=== PATIENT | female | born 1975 | race Hispanic/Latino ===

== ENCOUNTER 2018-09-18 14:46 | Emergency (ER) | payer BC ==
[~2018-09-18] VITALS: Ht 160 cm; Wt 77.1 kg
--- OUTSIDE RECORDS SUMMARY | 2018-09-18 14:48 | XMS REPORT ---
Author Author [facility] Address Unknown Phone Unavailable Care Team Providers Care Supervisor Cytogenetic Laboratory Name Role Phone DR Ginna ARSHAD Unavailable Unavailable DR CAROL ARSHAD Unavailable Unavailable Problems This patient has no known problems. Allergies, Adverse Reactions, Alerts This patient has no known allergies or adverse reactions. Medications This patient has no known medications. Encounters Start Date/Time End Date/Time Encounter Type Admission Type Attending Clinicians Care Facility Care Department Encounter ID 2017-02-27 10:36:00 2017-02-27 11:50:00 Emergency E CAROL ARSHAD [facility] [id number] Results Test Description Test Time Test Comments Text Results Atomic Results Result Comments OVA AND PARASITE EXAM 2018-02-07 07:31:00 Direct Exam (test code=DE1) NO OVA ,CYSTS, OR PARASITES SEEN Direct Exam (test code=DE17) TESTING PERFORMED BY: [facility] Direct Exam (test code=DE18) [id number] STOOL CULTURE (GI)2018-02-04 08:31:00* Test Item Value Reference Range Comments Culture Observations (test code=COB1) NO SALMONELLA, SHIGELLA, STAPH AUREUS OR CAMPYLOBACTER ISOLATED. SCREENING Culture Observations (test code=COB17) NEGATIVE FOR E. COLI 0157:H7 FECAL [id number] 17:02:00* Test Item Value Reference Range Comments Direct Exam (test code=DE1) FEW WHITE BLOOD CELLS SEEN CT ABDOMEN AND PELVIS W/O [id number] 16:27:49CT abdomen and pelvis without contrastLocation Code: [id number] HISTORY: RIGHT sided abd pain with diarrheaCOMPARISON: NoneTechnique: Helical CT of the abdomen and pelvis was performed without contrast.Thin section axial, sagittal and coronal images were obtained. Automaticexposure control was utilized. Total DLP: 693 mGycmFINDINGS:The lung bases are clear. 2 cm low-density left adrenal nodules co mpatible with an adenoma. Theunenhanced liver, gallbladder, adrenal glands, kidn eys, pancreas, and spleenare unremarkable.The unopacified loops of bowel demonst rate no focal thickening or dilatation.The appendix is visualized and is normal. There is no free peritoneal air orfluid. The abdominal aorta is normal in arianne fritz and contour. There is noretroperitoneal mass or fluid collection. The urina ry bladder is unremarkable.There is no pelvic mass or fluid collection. The bon es, skin, and surrounding soft tissues are unremarkable.IMPRESSION:1. No acute i ntra-abdominal or pelvic abnormality. 2. 2-cm left adrenal adenoma.AMYLASE AND [id number] 16:00:00* Test Item Value Reference Range Comments AMYLASE (test code=10A) 47 U/L 28-100 LIPASE (test code=60A) 106 IU/L 73-393 COMPREHENSIVE METABOLIC [id number] 16:00:00* Test Item Value Reference Range Comments GLUCOSE (test code=06D) 125 mg/dL 75-100 SODIUM (test code=01A) 139 mmol/L 136-145 POTASSIUM (test code=01B) 3.8 mmol/L 3.6-5.1 CHLORIDE (test code=04A) 107 mmol/L 98-107 CO2 (test code=02A) 24 mmol/L 22-32 ANION GAP (test code=ANG) 11.8 mmol/L BUN (test code=05D) 10 mg/dL 7-18 CREATININE (test code=03E) 0.5 mg/dL 0.4-1.1 BUN/CREA (test code=BCR) 19 12-20 CALCIUM (test code=09D) 8.4 mg/dL 8.3-9.5 BILI TOTAL (test code=11A) 0.2 mg/dL 0.2-1.0 PROTEIN (test code=07D) 7.5 g/dL 6.4-8.2 ALBUMIN (test code=08D) 3.6 g/dL 3.5-4.8 GLOBULIN (test code=GLB) 3.9 g/dL 1.5-3.8 ALB/GLOB (test code=AGRR) 0.9 1.0-2.6 ALK PHOS (test code=35A) 104 IU/L 42-121 AST (test code=30A) 18 IU/L <=42 ALT (test code=31A) 23 IU/L <=78 SERUM [id number] 15:52:00* Test Item Value Reference Range Comments PREG SRM (test code=PGS) NEGATIVE NEGATIVE URINALYSIS WITH [id number] 15:47:00* Test Item Value Reference Range Comments COLOR (test code=COLU) YELLOW YELLOW CLARITY (test code=CLA) CLOUDY CLEAR GLUCOSE UR (test code=UA GLUCOSE) NEGATIVE NEGATIVE BILI UR (test code=BILE) NEGATIVE NEGATIVE KETONES UR (test code=HEIDI) NEGATIVE NEGATIVE SP GRAVITY (test code=SPGR) 1.013 1.005-1.030 PH UR (test code=PH) 6.0 4.5-8.0 PROTEIN UR (test code=PU) NEGATIVE NEGATIVE UROBIL UR (test code=UROQ) 0.2 EU/dL 0.2-1.0 NITRITE UR (test code=NITRITE) NEGATIVE NEGATIVE BLOOD UR (test code=UA BLOOD) 1+ NEGATIVE LEUK ES UR (test code=LEUK) TRACE NEGATIVE WBC UR (test code=UWBC) 4 /HPF 0-5 RBC UR (test code=URBC) 6 /HPF 0-2 EPITH UR (test code=UEPC) MANY /LPF FEW BACTERIA UR (test code=UBACT) FEW /HPF NONE CAST UR (test code=CAST) /LPF NONE CRYSTAL UR (test code=CRYU) / LPF NONE MUCUS UR (test code=MUC) / HPF NONE AMORPH UR (test code=WILLARD) / HPF NONE TRICH UR (test code=UTRICH) /HPF NONE YEAST UR (test code=UY) /HPF NONE SPERM UR (test code=USPERM) /HPF NONE PRO TIME AND [id number] 15:46:00* Test Item Value Reference Range Comments PT (test code=TT) 11.6 s 9.8-13.6 INR (test code=INR) 1.0 INRH (test code=INRH) SUGGESTED THERAPEUTIC RANGE FOR INR: 2.5 - 3.5 For Patients with Prosthetic Valves or Patients with recurrent Thromboembolic Events 2.0 - 3.0 For Most Other Applications PTT (test code=PTT) 32.0 s 20.2-38.0 PTTH (test code=PTTH) To monitor the effectiveness of heparin, we offer the Anti-Xa (Heparin Assay). It can be used for either unfractionated or LMW Heparin. Order Code is ANTI-XA CBC (INCLUDES AUTOMATED DIFFERENTIAL)2018-01-30 15:40:00* Test Item Value Reference Range Comments WBC (test code=WBC) 9.4 10\S\3/uL 4.5-11.0 RBC (test code=RBC) 4.32 10\S\6/uL 4.30-5.70 HGB (test code=HBG) 13.5 g/dL 12.0-15.5 HCT (test code=HCT) 40.1 % 35.0-44.0 MCV (test code=MCV) 92.8 fL 81.0-99.0 MCH (test code=MCH) 31.3 pg 27.0-31.0 MCHC (test code=MCHC) 33.7 g/dL 32.0-36.0 RDW (test code=RDW) 13.7 % 11.5-14.5 PLT (test code=PLT) 412 10\S\3/uL 130-400 MPV (test code=MPV) 9.8 fL 9.4-12.4 NEUTROP # (test code=NE#) 5.9 10\S\3/uL 1.6-8.0 LYMPH # (test code=LY#) 2.7 10\S\3/uL 1.1-3.5 MONOCYTE # (test code=MO#) 0.6 10\S\3/uL 0.0-1.1 EOSINOPH # (test code=EO#) 0.2 10\S\3/uL 0.0-0.7 BASOPHIL # (test code=BA#) 0.0 10\S\3/uL 0.0-0.3 IG # (test code=IG#) 0.03 10\S\3/uL 0.00-0.06 NRBC # (test code=NRBC#) 0.00 10\S\3/uL 0.00-0.01 NEUTROPH % (test code=NE%) 62.3 % 35.0-73.0 LYMPH % (test code=LY%) 29.0 % 20.0-55.0 MONO % (test code=MO%) 6.5 % 2.5-10.0 EOSINOPH % (test code=EO%) 1.7 % 0.0-5.0 BASOPHIL % (test code=BA%) 0.2 % 0.0-2.0 IG % (test code=IG%) 0.3 % 0.0-0.8 NRBC% (test code=NRBC%) 0.0 % 0.0-0.2 MANDIFF (test code=MDIFF) NO NO COMPREHENSIVE METABOLIC [id number] 11:24:00* Test Item Value Reference Range Comments GLUCOSE (test code=06D) 97 mg/dL 75-100 SODIUM (test code=01A) 139 mmol/L 136-145 POTASSIUM (test code=01B) 3.7 mmol/L 3.6-5.1 CHLORIDE (test code=04A) 107 mmol/L 98-107 CO2 (test code=02A) 25 mmol/L 22-32 ANION GAP (test code=ANG) 10.7 mmol/L BUN (test code=05D) 14 mg/dL 7-18 CREATININE (test code=03E) 0.4 mg/dL 0.4-1.1 BUN/CREA (test code=BCR) 36 12-20 CALCIUM (test code=09D) 8.1 mg/dL 8.3-9.5 BILI TOTAL (test code=11A) 0.3 mg/dL 0.2-1.0 PROTEIN (test code=07D) 6.9 g/dL 6.4-8.2 ALBUMIN (test code=08D) 3.6 g/dL 3.5-4.8 GLOBULIN (test code=GLB) 3.3 g/dL 1.5-3.8 ALB/GLOB (test code=AGRR) 1.1 1.0-2.6 ALK PHOS (test code=35A) 89 IU/L 42-121 AST (test code=30A) 12 IU/L <=42 ALT (test code=31A) 22 IU/L <=78 CARDIAC [id number] 11:21:00* Test Item Value Reference Range Comments TROPONIN I (test code=A84) <0.015 ng/mL 0.000-0.045 CKMB (test code=A49) <1.0 ng/mL <=3.6 CPK (test code=32A) 33 IU/L 26-192 CT HEAD W/O [id number] 11:12:21CT brain without contrast.Location code: [id number] HISTORY: dizzy COMPARISON: None.TECHNIQUE: Routine unenhanced axial imaging of the brain was performed. Oneor more of the following dose reduction techniques were used: Automatedexposure control, adjustment of the mA and or KV according to patient size,and/or utilization of iterative reconstruction technique. DLP: 598 mGy-cm. FINDINGS: There is no acute intracranial hemorrhage or extra-axial collection.There is no hydrocephalus, midline shift, or space occupying mass. Young-whitematter differentiation is well preserved with no definite CT evidence of anacute infarct. The cranial vault and skull base are intact. The paranasal sinuses and mastoidair cells are pneumatized and well aerated. IMPRESSION: No acute intracranial abnormality. CBC (INCLUDES AUTOMATED DIFFERENTIAL)2017-02-27 11:04:00* Test Item Value Reference Range Comments WBC (test code=WBC) 9.2 10\S\3/uL 4.5-11.0 RBC (test code=RBC) 4.08 10\S\6/uL 4.30-5.70 HGB (test code=HBG) 12.6 g/dL 12.0-15.5 HCT (test code=HCT) 37.9 % 35.0-44.0 MCV (test code=MCV) 92.9 fL 81.0-99.0 MCH (test code=MCH) 30.9 pg 27.0-31.0 MCHC (test code=MCHC) 33.2 g/dL 32.0-36.0 RDW (test code=RDW) 13.9 % 11.5-14.5 PLT (test code=PLT) 283 10\S\3/uL 130-400 MPV (test code=MPV) 9.9 fL 9.4-12.4 NEUTROP # (test code=NE#) 6.0 10\S\3/uL 1.6-8.0 LYMPH # (test code=LY#) 2.5 10\S\3/uL 1.1-3.5 MONOCYTE # (test code=MO#) 0.5 10\S\3/uL 0.0-1.1 EOSINOPH # (test code=EO#) 0.1 10\S\3/uL 0.0-0.7 BASOPHIL # (test code=BA#) 0.0 10\S\3/uL 0.0-0.3 IG # (test code=IG#) 0.04 10\S\3/uL 0.00-0.06 NRBC # (test code=NRBC#) 0.00 10\S\3/uL 0.00-0.01 NEUTROPH % (test code=NE%) 65.3 % 35.0-73.0 LYMPH % (test code=LY%) 27.0 % 20.0-55.0 MONO % (test code=MO%) 5.9 % 2.5-10.0 EOSINOPH % (test code=EO%) 1.1 % 0.0-5.0 BASOPHIL % (test code=BA%) 0.3 % 0.0-2.0 IG % (test code=IG%) 0.4 % 0.0-0.8 NRBC% (test code=NRBC%) 0.0 % 0.0-0.2 MANDIFF (test code=MDIFF) NO NO RBC MORPH (test code=RBCMOR) NORMAL
[2018-09-18 15:33] LABS: BASOPHILS % 0.1 % (0.0-1.0); EOSINOPHILS # (AUTO) 0.2 (0.0-0.4); EOSINOPHILS % 1.8 % (0.0-6.0); HEMATOCRIT 41.9 % (34.2-44.1); HEMOGLOBIN 14.3 g/dL (12.0-16.0); LYMPHOCYTES # (AUTO) 3.1 (1.0-3.2); LYMPHOCYTES % 31.8 % (18.0-39.1); MEAN CORPUSCULAR HEMOGLOBIN 32.1 pg (28-32); MEAN CORPUSCULAR HGB CONC 34.1 g/dL (31-35); MEAN CORPUSCULAR VOLUME 94.2 fL (81-99); MONOCYTES # (AUTO) 0.6 (0.2-0.8); MONOCYTES % 5.9 % (4.4-11.3); NEUTROPHILS # (AUTO) 5.8 (2.1-6.9); NEUTROPHILS % 60.2 % (38.7-80.0); PLATELET COUNT 312 x10e3/uL (140-360); RED BLOOD COUNT 4.45 x10e6/uL (3.6-5.1); RED CELL DISTRIBUTION WIDTH 13.4 % (11.7-14.4)
[2018-09-18 15:41] LABS: CLARITY,URINE SL CLOUDY (CLEAR); COLOR,URINE YELLOW (YELLOW); KETONES,URINE NEGATIVE (NEGATIVE); LEUKOCYTE ESTERASE ,URINE NEGATIVE (NEGATIVE); NITRITE,URINE NEGATIVE (NEGATIVE); PROTEIN,URINE DIPSTICK NEGATIVE (NEGATIVE)
[2018-09-18 15:42] LABS: BILIRUBIN,URINE NEGATIVE (NEGATIVE); URINE UROBILINOGEN 0.2 mg/dL (0.2 - 1)
--- NOTE | 2018-09-18 15:46 | Diagnostic Imaging Report ---
EXAMINATION: Head CT HISTORY: Dizziness, headaches, vertigo COMPARISON: None. TECHNIQUE: Multidetector axial images were obtained with, without contrast from the foramen magnum to the vertex . The images were reconstructed using brain and bone algorithms. Thin section brain images were reformatted into coronal and sagittal planes. Image quality: Motion/streaking artifact limits the evaluation of the skull base and posterior cranial fossa. Dose modulation, iterative reconstruction, and/or weight based adjustment of the mA/kV was utilized to reduce the radiation dose to as low as reasonably achievable. FINDINGS: Parenchyma: 1. A few juxta cortical and periventricular matter hypodensities mainly in the frontal lobes, most likely nonspecific chronic microvessel ischemic changes versus migraine related. 2. No mass or hemorrhage. No CT evidence of acute territorial vascular insult. Extra-axial spaces:No abnormal density. No extra-axial fluid collections Brain volume: Normal for age. Ventricles: No hydrocephalus or displacement. Arteries: No density suggestive of thrombus. Dural sinuses: No abnormal density. Extra-axial spaces: No abnormal density. Foramen magnum: No mass, Chiari malformation, or basilar invagination. Sella: No obvious mass. Paranasal/mastoid sinuses: Imaged portions unremarkable. Skull/Scalp: No lytic or blastic lesions. No fractures. IMPRESSION: 1. No acute intracranial abnormalities. 2. Mild chronic microvascular ischemic changes. Signed by: Dr. Liane Garibay M.D. on 09/18/2018 3:43 PM
[2018-09-18 15:47] LABS: INR 0.93
[2018-09-18 15:48] LABS: PARTIAL THROMBOPLASTIN TIME 35.4 seconds (23.8-35.5)
[2018-09-18 15:49] LABS: BACTERIA,URINE MANY /HPF; EPITHELIAL CELLS,URINE MANY /LPF
[2018-09-18 16:01] LABS: ALANINE AMINOTRANSFERASE 18 IU/L (0-55); ALBUMIN 3.9 g/dL (3.5-5.0); ALBUMIN/GLOBULIN RATIO 1.1 (0.8-2.0); ALKALINE PHOSPHATASE 84 IU/L (40-150); ANION GAP 12.4 mmol/L (8-16); BLOOD UREA NITROGEN 12 mg/dL (7-26); BUN/CREATININE RATIO 20 (6-25); CALCIUM 9.6 mg/dL (8.4-10.2); CARBON DIOXIDE 23 mmol/L (22-29); CHLORIDE 108 mmol/L (98-107); CREATINE KINASE 32 IU/L (29-168); CREATININE, SERUM 0.61 mg/dL (0.57-1.11); EST GLOMERULAR FILTRATION RATE > 60 ML/MIN (60-); GLUCOSE 88 mg/dL (74-118); MAGNESIUM 2.5 MG/DL (1.3-2.1); POTASSIUM 4.4 mmol/L (3.5-5.1); SODIUM 139 mmol/L (136-145)
[2018-09-18 16:20] LABS: THYROID STIMULATING HORMONE 1.021 uIU/mL (0.350-4.940)
--- NOTE | 2018-09-18 16:23 | Diagnostic Imaging Report ---
EXAMINATION: CHEST 2 VIEWS INDICATION: Dizziness. COMPARISON: None FINDINGS: TUBES and LINES: None. LUNGS: Lungs are well inflated. There is no evidence of pneumonia or pulmonary edema. PLEURA: No pleural effusion or pneumothorax. HEART AND MEDIASTINUM: The cardiomediastinal silhouette is unremarkable. BONES AND SOFT TISSUES: No acute osseous abnormality. UPPER ABDOMEN: No free air under the diaphragm. IMPRESSION: No acute radiographic abnormality. Signed by: Dr. Renetta Baugh MD on 09/18/2018 4:20 PM
[2018-09-18 17:42] VITALS: BP 120/64
== END 2018-09-18 17:43 | disposition home or self-care (01) ==
LOC: ER 14:46
DX: R42 Dizziness and giddiness (principal); I10 Essential (primary) hypertension; F41.9 Anxiety disorder, unspecified; F32.9 Major depressive disorder, single episode, unspecified
CPT/HCPCS: 36415; 70450; 71046; 80053; 81001; 82550; 82553; 83735; 84443; 84484; 85025; 85610; 85730; 93005; 99284